=== PATIENT | female | born 1965 | race African-American/Black ===

== ENCOUNTER 2018-12-06 15:45 | Emergency (ER) | payer MEDICAID ==
--- NOTE | 2018-12-06 17:46 | ED Physician Documentation ---
PD HPI LOWER EXT INJURY - Stated complaint Stated Complaint: LEG PX - Chief complaint Chief Complaint: Ext Problem - History obtained from History obtained from: Patient - History of Present Illness PD HPI LOW EXT INJURY LOCATION: Left, Lower leg (anterolateral aspect) Type of injury: No: Fall, Twist Where injury occurred: Home Timing - onset: How many weeks ago (3-4) Timing - duration: Weeks (3-4) Timing - details: Gradual onset, Still present Associated symptoms: Discolored (the past couple days, is having mottled appearance in the area. No redness per se. No blisters. Is tender in the muscle there. Not tender posteriorly nor popliteal. Palpable pulses in foot and good cap refill in toes.). No: Weakness, Numbness, Swelling Similar symptoms before: Has not had sx before Recently seen: Not recently seen Review of Systems Constitutional: denies: Fever, Chills, Myalgias, Fatigue Nose: denies: Rhinorrhea / runny nose, Congestion Throat: denies: Sore throat Respiratory: denies: Cough GI: denies: Abdominal Pain, Nausea, Vomiting, Diarrhea : denies: Hematuria Musculoskeletal: denies: Neck pain, Back pain PD PAST MEDICAL HISTORY - Past Medical History Past Medical History: No Cardiovascular: None Respiratory: None Neuro: None Endocrine/Autoimmune: None - Past Surgical History Past Surgical History: No - Present Medications Home Medications: Ambulatory Orders Medication Instructions Recorded Confirmed Naproxen 500 mg PO BID #20 tablet 12/06/18 Tramadol HCl 50 mg PO Q6H PRN #15 tablet 12/06/18 - Allergies Allergies/Adverse Reactions: Allergies Allergy/AdvReac Type Severity Reaction Status Date / Time No Known Drug Allergies Allergy Verified 12/06/18 16:28 - Social History Does the pt smoke?: No Smoking Status: Never smoker Does the pt drink ETOH?: No Does the pt have substance abuse?: No - Immunizations Immunizations are current?: Yes - POLST Patient has POLST: No PD ED PE NORMAL - Vitals Vital signs reviewed: Yes - General General: Alert and oriented X 3, No acute distress (seems concerned about the pain in leg, but not is apparent distress. Says it hurts a lot. ), Well developed/nourished - Neck Neck: Supple, no meningeal sign, No adenopathy - Cardiac Cardiac: RRR, No murmur - Respiratory Respiratory: Clear bilaterally - Abdomen Abdomen: Soft, Non tender - Back Back: No CVA TTP, No spinal TTP - Derm Derm: Warm and dry, Other (mottled appearance of skin just in local area of left lower leg. No purpura, vesicles, nor skin ulcerations/lesions. ). No: Normal color (the anterolateral aspect of left lower leg with defined area of mottling of skin. Some tender to touch of skin and soft tissue. No edema. No blisters. No redness nor skin sores per se. ) - Extremities Extremities: No edema, Other (not calf tender per se. But is tender muscle ) Results - Vitals Vitals: Oxygen O2 Source Room air - Labs Labs: Laboratory Tests 12/06/18 12/06/18 18:42 18:42 WBC 4.7 L RBC 4.14 L Hgb 12.5 Hct 38.9 MCV 94.1 MCH 30.3 MCHC 32.2 RDW 12.6 Plt Count 266 MPV 7.1 L Neut # (Auto) 2.7 Lymph # (Auto) 1.7 Parmer # (Auto) 0.2 Eos # (Auto) 0.0 Baso # (Auto) 0.0 Absolute Nucleated RBC 0.01 Nucleated RBC % 0.2 Sodium 138 Potassium 3.4 L Chloride 103 Carbon Dioxide 28 Anion Gap 7.0 BUN 17 Creatinine 0.8 Estimated GFR (MDRD) 91 Glucose 91 Calcium 9.1 Magnesium 2.1 Total Bilirubin 0.6 AST 16 ALT 12 Alkaline Phosphatase 54 Total Creatine Kinase 158 Total Protein 7.1 Albumin 3.8 Globulin 3.3 Albumin/Globulin Ratio 1.2 Lipase 50 PD MEDICAL DECISION MAKING - ED course Complexity details: considered differential (interesting to have the pain in leg, and tenderness, now developed mottling color lateral lower leg. Normal labs. Symptoms could be c/w shingles with atypical rash as yet, but duration is long. Unclear the cause at this itme. No significant process that I can think of, so seems stable for discharge. ), d/w patient Departure - Departure Disposition: 01 Home, Self Care Clinical Impression: Pain in left lower leg Condition: Stable Record reviewed to determine appropriate education?: Yes Instructions: Leg Low Back Pain Poss Causes Prescriptions: Naproxen 500 mg PO BID #20 tablet Tramadol HCl 50 mg PO Q6H PRN #15 tablet PRN Reason: Pain Comments: Your basic blood tests and the ultrasound appeared normal. There is no signs of blood flow issues or clots as a cause of the pain. There is no signs of muscle breakdown or electrolyte problems on your blood test. I am not sure the cause of your pain in the mottling color of the skin. At this point would treated with some anti-inflammatories thinking and nerve irritation for the area. Naproxen twice daily for 7-10 days. Add tramadol pain medicine if needed. Follow-up with your primary care if not improved over the next several days to week. Discharge Date/Time: 12/06/18 21:33
[2018-12-06] MEDS ORDERED: HYDROcod/ACETAM 5/325 MG TABLET PO STA (18:34)
[2018-12-06] MEDS ORDERED: IBUPROFEN 600 MG TABLET PO STA (18:34)
[2018-12-06 18:50] LABS: BASOPHILS % (AUTO) 0.4 %; EOSINOPHILS % (AUTO) 0.7 %; HGB - HEMOGLOBIN 12.5 g/dL (12.0-16.0); LYMPHOCYTES # (AUTO) 1.7 10^3/uL (1.5-3.5); LYMPHOCYTES % (AUTO) 36.2 %; MEAN CORPUSCULAR HEMOGLOBIN 30.3 pg (27.0-31.0); MEAN CORPUSCULAR HGB CONC 32.2 g/dL (32.0-36.0); MEAN CORPUSCULAR VOLUME 94.1 fL (81.0-99.0); MEAN PLATELET VOLUME 7.1 fL (7.9-10.8); MONOCYTES # (AUTO) 0.2 10^3/uL (0.0-1.0); MONOCYTES % (AUTO) 4.9 %; NEUTROPHILS # (AUTO) 2.7 10^3/uL (1.5-6.6); NEUTROPHILS % (AUTO) 57.8 %; PLT - PLATELET COUNT 266 10^3/uL (130-450); RED BLOOD COUNT 4.14 10^6/uL (4.20-5.40); RED CELL DISTRIBUTION WIDTH 12.6 % (12.0-15.0); WHITE BLOOD COUNT 4.7 x10^3/uL (4.8-10.8)
[2018-12-06 18:56] LABS: ALBUMIN 3.8 g/dL (3.2-5.5); ALBUMIN/GLOBULIN RATIO 1.2 (1.0-2.2); BILIRUBIN,TOTAL 0.6 mg/dL (0.2-1.0); CALCIUM 9.1 mg/dL (8.5-10.3); CREATININE 0.8 mg/dL (0.4-1.0); MAGNESIUM 2.1 mg/dL (1.7-2.8); TOTAL PROTEIN 7.1 g/dL (6.7-8.2)
--- NOTE | 2018-12-06 20:07 | Ultrasound Report ---
Reason: left leg pain for several weeks, worse with walkin Procedure Date: 12/06/2018 Accession Number: [id number] / [id number] Procedure: US - Duplex Lwr Ext Arterial LT CPT Code: FULL RESULT: EXAM: LEFT LOWER EXTREMITY ARTERIAL DOPPLER ULTRASOUND. EXAM DATE: 12/06/2018 07:40 PM. CLINICAL HISTORY: Left leg pain for several weeks, worse with walking. COMPARISON: None. TECHNIQUE: Real-time sonographic vascular imaging was performed by the paralegal instructor, utilizing color-flow, Doppler flow, and spectral analysis. Multiple community representative static images were saved for review. FINDINGS: Left Lower Extremity: VOICE PATHOLOGIST: PSV 126.7 cm/sec PSFA: PSV 76.8 cm/sec MSFA: PSV 89.1 cm/sec DSFA: PSV 57.3 cm/sec PFA D: PSV 64.5 cm/sec Pop: PSV 58.1 cm/sec SETH: PSV 30.6 cm/sec ANALYTICAL DATA SCIENTIST D: PSV 37.7 cm/sec PER: PSV 33.6 cm/sec DPA: PSV 38.5 cm/sec IMPRESSION: No evidence for hemodynamically significant stenosis. RADIA
[2018-12-06 21:33] VITALS: BP 132/79
== END 2018-12-06 21:33 | disposition home or self-care (01) ==
LOC: ED 15:45
DX: M79.662 Pain in left lower leg (principal)
CPT/HCPCS: 36415; 80053; 82550; 83690; 83735; 85025; 93926; 99283; A9270

== ENCOUNTER 2019-01-11 10:13 | Emergency (ER) | payer MEDICAID ==
[2019-01-11] MEDS ORDERED: SODIUM CHLORIDE 0.9% 1,000 ML IV ONE (10:50)
[2019-01-11 11:05] LABS: BASOPHILS % (AUTO) 0.2 %; HGB - HEMOGLOBIN 12.5 g/dL (12.0-16.0); LYMPHOCYTES # (AUTO) 0.6 10^3/uL (1.5-3.5); LYMPHOCYTES % (AUTO) 16.9 %; MEAN CORPUSCULAR HEMOGLOBIN 31.2 pg (27.0-31.0); MEAN CORPUSCULAR HGB CONC 33.8 g/dL (32.0-36.0); MEAN CORPUSCULAR VOLUME 92.2 fL (81.0-99.0); MEAN PLATELET VOLUME 6.7 fL (7.9-10.8); MONOCYTES # (AUTO) 0.3 10^3/uL (0.0-1.0); MONOCYTES % (AUTO) 8.6 %; NEUTROPHILS # (AUTO) 2.5 10^3/uL (1.5-6.6); NEUTROPHILS % (AUTO) 74.3 %; PLT - PLATELET COUNT 210 10^3/uL (130-450); RED BLOOD COUNT 4.02 10^6/uL (4.20-5.40); RED CELL DISTRIBUTION WIDTH 12.7 % (12.0-15.0); WHITE BLOOD COUNT 3.4 x10^3/uL (4.8-10.8)
[2019-01-11 11:18] LABS: ALBUMIN 3.9 g/dL (3.2-5.5); ALBUMIN/GLOBULIN RATIO 1.1 (1.0-2.2); BILIRUBIN,TOTAL 0.7 mg/dL (0.2-1.0); CALCIUM 8.5 mg/dL (8.5-10.3); CREATININE 0.6 mg/dL (0.4-1.0); TOTAL PROTEIN 7.6 g/dL (6.7-8.2)
--- NOTE | 2019-01-11 11:40 | XRAY Report ---
Reason: cough Procedure Date: 01/11/2019 Accession Number: [id number] / [id number] Procedure: XR - Chest 2 View X-Ray CPT Code: 11704 FULL RESULT: EXAM: CHEST RADIOGRAPHY EXAM DATE: 01/11/2019 11:30 AM. CLINICAL HISTORY: Cough. COMPARISON: None. TECHNIQUE: 2 views. FINDINGS: Lungs/Pleura: No focal opacities evident. No pleural effusion. No pneumothorax. Normal volumes. Mediastinum: Heart and mediastinal contours are unremarkable. Other: None. IMPRESSION: Normal 2-view chest radiography. RADIA
[2019-01-11] MEDS ORDERED: KETOROLAC 30 MG/ML VIAL IVP STA (12:06)
[2019-01-11] MEDS ORDERED: guaiFENesin/CODEINE 5 ML UDC PO STA (12:06)
--- NOTE | 2019-01-11 12:08 | ED Physician Documentation ---
PD HPI URI - Stated complaint Stated Complaint: COLD/FEVER - Chief complaint Chief Complaint: Resp - History obtained from History obtained from: Patient, Family - History of Present Illness Timing - onset: Other (This is a previously healthy 53-year-old woman whose been sick for about a week with nonproductive cough, fevers as high as 102.9, runny nose and slight nausea. She denies any body aches or myalgias. No sick contacts or recent travel.) Review of Systems Constitutional: reports: Fever, Chills, Fatigue. denies: Myalgias Nose: reports: Rhinorrhea / runny nose Respiratory: reports: Cough. denies: Dyspnea GI: reports: Nausea. denies: Abdominal Pain, Vomiting PD PAST MEDICAL HISTORY - Past Medical History Cardiovascular: None Respiratory: None Neuro: None Endocrine/Autoimmune: None - Past Surgical History Past Surgical History: No - Present Medications Home Medications: Ambulatory Orders Medication Instructions Recorded Confirmed Ibuprofen [Motrin] 800 mg PO Q8H PRN #30 tablet 01/11/19 guaiFENesin/CODEINE [Robitussin AC] 5 - 10 ml PO Q6H PRN #120 ml 01/11/19 - Allergies Allergies/Adverse Reactions: Allergies Allergy/AdvReac Type Severity Reaction Status Date / Time No Known Drug Allergies Allergy Verified 01/11/19 10:33 - Social History Does the pt smoke?: No Smoking Status: Never smoker Does the pt drink ETOH?: No Does the pt have substance abuse?: No - Immunizations Immunizations are current?: Yes - POLST Patient has POLST: No PD ED PE NORMAL - Vitals Vital signs reviewed: Yes - General General: Alert and oriented X 3, No acute distress - HEENT HEENT: PERRL, EOMI, Ears normal, Pharynx benign - Neck Neck: Supple, no meningeal sign, No bony TTP - Cardiac Cardiac: RRR, No murmur - Respiratory Respiratory: No respiratory distress, Clear bilaterally - Abdomen Abdomen: Non tender - Derm Derm: No rash - Neuro Neuro: Alert and oriented X 3, Normal speech Results - Vitals Vitals: Vital Signs - 24 hr 01/11/19 01/11/19 01/11/19 10:30 12:03 13:51 Temperature 37.9 C H Heart Rate 91 71 Respiratory 18 17 Rate Blood Pressure 92/59 L 108/74 110/79 O2 Saturation 97 96 Oxygen O2 Source Room air - Labs Labs: Laboratory Tests 01/11/19 01/11/19 01/11/19 11:00 11:00 11:00 WBC 3.4 L RBC 4.02 L Hgb 12.5 Hct 37.1 MCV 92.2 MCH 31.2 H MCHC 33.8 RDW 12.7 Plt Count 210 MPV 6.7 L Neut # (Auto) 2.5 Lymph # (Auto) 0.6 L Collier # (Auto) 0.3 Eos # (Auto) 0.0 Baso # (Auto) 0.0 Absolute Nucleated RBC 0.01 Nucleated RBC % 0.2 Sodium 132 L Potassium 3.4 L Chloride 98 L Carbon Dioxide 23 Anion Gap 11.0 BUN 10 Creatinine 0.6 Estimated GFR (MDRD) 127 Glucose 104 H Lactic Acid 0.7 Calcium 8.5 Total Bilirubin 0.7 AST 26 ALT 20 Alkaline Phosphatase 62 Total Protein 7.6 Albumin 3.9 Globulin 3.7 Albumin/Globulin Ratio 1.1 Lipase 46 Influenza A (Rapid) Influenza B (Rapid) 01/11/19 12:05 WBC RBC Hgb Hct MCV MCH MCHC RDW Plt Count MPV Neut # (Auto) Lymph # (Auto) Collier # (Auto) Eos # (Auto) Baso # (Auto) Absolute Nucleated RBC Nucleated RBC % Sodium Potassium Chloride Carbon Dioxide Anion Gap BUN Creatinine Estimated GFR (MDRD) Glucose Lactic Acid Calcium Total Bilirubin AST ALT Alkaline Phosphatase Total Protein Albumin Globulin Albumin/Globulin Ratio Lipase Influenza A (Rapid) POSITIVE H Influenza B (Rapid) Negative - Rads (name of study) 2v chest Radiology: EMP read contemporaneously (normal) PD MEDICAL DECISION MAKING - ED course ED course: This is a 53-year-old woman with influenza A which is treated symptomatically, she is outside of the time course for expected efficacy of the antivirals. Departure - Departure Disposition: 01 Home, Self Care Clinical Impression: Influenza A Condition: Good Record reviewed to determine appropriate education?: Yes Instructions: ED Flu Prescriptions: guaiFENesin/CODEINE [Robitussin AC] 5 - 10 ml PO Q6H PRN #120 ml PRN Reason: Cough Ibuprofen [Motrin] 800 mg PO Q8H PRN #30 tablet PRN Reason: PAIN &/OR FEVER Comments: No work for 5 days, there is anti-flu medication but it is only effective in the first 48 hours of illness was not indicated for your illness at this point. Return for new or worsening symptoms. Discharge Date/Time: 01/11/19 13:51
[2019-01-11 13:51] VITALS: BP 110/79
== END 2019-01-11 13:51 | disposition home or self-care (01) ==
LOC: ED 10:13
DX: J10.1 Influenza due to other identified influenza virus with other respiratory manifestations (principal)
CPT/HCPCS: 36415; 71046; 80053; 83605; 83690; 85025; 87275; 87276; 96361; 96374; 99283; A9270

== ENCOUNTER 2019-06-08 15:51 | Emergency (ER) | payer MEDICAID ==
[2019-06-08 16:07] VITALS: BP 108/81
--- NOTE | 2019-06-08 16:24 | ED Physician Documentation ---
History of Present Illness - Stated complaint Stated Complaint: RIGHT ARM WEAKNESS/TIRED - Chief complaint Chief Complaint: Ext Problem - History obtained from History obtained from: Patient, Family - Additonal information Additional information: Patient is a previously healthy, right-handed 53-year-old female presenting with generalized right arm pain and weakness. Patient and her family report that she has been doing heavy lifting, strenuous exercise, and repetitive motions such as washing lots of dishes with her right arm over the past several days, but deny other inciting incident or trauma. Patient does report decreased strength but no change in range of motion or sensation to this arm. Patient also denies any swelling, redness, or other skin changes except for "bumps" underlying the skin which have been there for years and are also on other parts of her body.No other improving or worsening factors noted. Review of Systems Skin: reports: Lesions. denies: Rash, Abrasion (s), Laceration (s) Musculoskeletal: reports: Extremity pain. denies: Joint pain, Extremity swelling, Joint swelling Neurologic: reports: Focal weakness. denies: Numbness PD PAST MEDICAL HISTORY - Past Medical History Cardiovascular: None Respiratory: None Neuro: None Endocrine/Autoimmune: None - Past Surgical History Past Surgical History: No - Present Medications Home Medications: Ambulatory Orders Medication Instructions Recorded Confirmed Ibuprofen [Motrin] 800 mg PO Q8H PRN #30 tablet 01/11/19 guaiFENesin/CODEINE [Robitussin AC] 5 - 10 ml PO Q6H PRN #120 ml 01/11/19 - Allergies Allergies/Adverse Reactions: Allergies Allergy/AdvReac Type Severity Reaction Status Date / Time No Known Drug Allergies Allergy Verified 06/08/19 16:07 - Social History Does the pt smoke?: No Smoking Status: Never smoker Does the pt drink ETOH?: No Does the pt have substance abuse?: No - Immunizations Immunizations are current?: Yes - POLST Patient has POLST: No PD ED PE NORMAL - Vitals Vital signs reviewed: Yes - General General: Alert and oriented X 3, No acute distress, Well developed/nourished - HEENT HEENT: Atraumatic, Moist mucous membranes - Cardiac Cardiac: Strong equal pulses - Respiratory Respiratory: No respiratory distress - Derm Derm: Normal color, Warm and dry, No rash, Other (Scattered palpable soft nodules underlying skin that are not painful, likely lipomas. No other complicating factors noted.) - Extremities Extremities: No deformity, No tenderness to palpate, Normal ROM s pain, No edema - Neuro Neuro: Alert and oriented X 3, No sensory deficit. No: No motor deficit (Decreased strength of right hand 4/5 full range of motion, strength, sensation otherwise.) - Psych Psych: Normal mood, Normal affect Results - Vitals Vitals: Vital Signs - 24 hr 06/08/19 16:03 Temperature 36.2 C L Heart Rate 73 Respiratory 18 Rate Blood Pressure 108/81 H O2 Saturation 98 Oxygen O2 Source Room air PD MEDICAL DECISION MAKING - ED course Complexity details: considered differential, d/w patient, d/w family ED course: Patient presenting with generalized pain and weakness to the right upper extremity without particular inciting incident or trauma, but likely overuse and repetitive use. Do not find bony abnormalities to indicate dislocation or fracture and do not feel patient requires x-ray. Do not find areas to indicate gout, joint infection, cellulitis, abscess, lymphangitis. Do not have concern for DVT, stroke, neuropathy, radiculopathy at this time. Patient does have palpable nodules likely underlying lipomas, particularly given nonpainful and chronicity. Feel the patient's discomfort and other symptoms are related to tendinitis or other overuse issues. At this time, do not feel she requires anything invasive or imaging, but can be treated as an outpatient with supportive cares. Discussed use of sling, return precautions, other supportive cares, and follow-up. Patient and family voiced understanding and are comfortable with discharge plan. Departure - Departure Disposition: 01 Home, Self Care Clinical Impression: Pain in extremity, Muscle strain Condition: Good Instructions: ED Epicondylitis Lateral Elbow Follow-Up: your,doctor [Other] - Within 3 Days Comments: May use sling as needed for comfort, but please remove your arm regularly throughout the day to avoid stiffness. May also elevate and apply ice, as well as take ibuprofen/Tylenol. Please avoid heavy lifting, strenuous exercise, repetitive movements. Follow-up with primary care physician in next 2 to 3 days and return to ED sooner if experience worsening symptoms or have other concerns. Discharge Date/Time: 06/08/19 16:57
== END 2019-06-08 16:57 | disposition home or self-care (01) ==
LOC: ED 15:51
DX: S46.911A Strain of unspecified muscle, fascia and tendon at shoulder and upper arm level, right arm, initial encounter (principal)
CPT/HCPCS: 99282

== ENCOUNTER 2019-08-03 21:11 | Emergency (ER) | payer MEDICAID ==
--- NOTE | 2019-08-03 21:23 | ED Physician Documentation ---
PD HPI BACK PAIN - Stated complaint Stated Complaint: BACK PX/INJ - Chief complaint Chief Complaint: Back Pain - History obtained from History obtained from: Patient - History of Present Illness Timing - onset: Enter time (14:00), Today Timing - details: Abrupt onset Location: Lower (across lower back) Quality: Pain Associated symptoms: No: Fever, Weakness, Numbness, Incontinent of urine, Unable to urinate, Incontinent of stool Improves with: Rest, Position (standing) Worsened by: Movement, Other (lying supine) Similar symptoms before: Has not had sx before Recently seen: Not recently seen - Additional information Additional information: patient had been performing some heavy lifting earlier today but this did not coincide with symptom onset. This afternoon at 2 PM, she went to stand from sitting position and had sudden onset pain across her lower back. The pain was intense enough for her to require assistance standing back up. She has since had gradually worsening pain across her lower back that is distinctly related to movement (bending, twisting) and partially relieved with standing still. Getting into and back out of bed required assistance from family, which is not normal for patient. Review of Systems Constitutional: denies: Fever : denies: Unable to Void, Incontinent Musculoskeletal: reports: Back pain. denies: Neck pain Neurologic: denies: Focal weakness, Numbness PD PAST MEDICAL HISTORY - Past Medical History Cardiovascular: None Respiratory: None Neuro: None Endocrine/Autoimmune: None - Past Surgical History Past Surgical History: No - Present Medications Home Medications: Ambulatory Orders Medication Instructions Recorded Confirmed Cyclobenzaprine [Flexeril] 10 mg PO TID PRN #20 tablet 08/03/19 Hydrocodone/Acetaminophen 1 - 2 each PO Q6H PRN #14 tablet 08/03/19 [Hydrocodon-Acetaminophen 5-325] - Allergies Allergies/Adverse Reactions: Allergies Allergy/AdvReac Type Severity Reaction Status Date / Time No Known Drug Allergies Allergy Verified 08/03/19 21:16 - Social History Does the pt smoke?: No Smoking Status: Never smoker Does the pt drink ETOH?: No Does the pt have substance abuse?: No - Immunizations Immunizations are current?: Yes - POLST Patient has POLST: No PD ED PE NORMAL - Vitals Vital signs reviewed: Yes - General General: Alert and oriented X 3, No acute distress (NAD when standing at bedside and still, but appears to have mild painful discomfort when she sits on stretcher or turns / twists to either side (at hips)), Well developed/nourished - Back Back: No CVA TTP, No spinal TTP - Derm Derm: Normal color, Warm and dry, No rash - Neuro Neuro: Alert and oriented X 3, No motor deficit (5/5 dorsi/plantarflexion), No sensory deficit, Other (2+/4 bilateral patellar DTR) Results - Vitals Vitals: Vital Signs - 24 hr 08/03/19 08/03/19 21:13 23:00 Temperature 36.6 C Heart Rate 70 61 Respiratory 18 16 Rate Blood Pressure 113/87 H 119/90 H O2 Saturation 97 99 Oxygen O2 Source Room air - Rads (name of study) lumbar xrays Radiology: Prelim report reviewed, See rad report PD MEDICAL DECISION MAKING - ED course Complexity details: reviewed results, re-evaluated patient, considered differential, d/w patient ED course: I discussed options for pain control with patient. She initially declines any medications but eventually agreeable to "low dose" (per patient) of ibuprofen. Departure - Departure Disposition: 01 Home, Self Care Clinical Impression: Lumbar strain Condition: Good Instructions: ED Sprain Strain Lumbar Prescriptions: Cyclobenzaprine [Flexeril] 10 mg PO TID PRN #20 tablet PRN Reason: Spasms Hydrocodone/Acetaminophen [Hydrocodon-Acetaminophen 5-325] 1 - 2 each PO Q6H PRN #14 tablet PRN Reason: pain Discharge Date/Time: 08/03/19 23:18
[2019-08-03] MEDS ORDERED: IBUPROFEN 400 MG TABLET PO STA (21:37)
--- NOTE | 2019-08-03 22:47 | XRAY Report ---
Reason: low back pain Procedure Date: 08/03/2019 Accession Number: [id number] / [id number] Procedure: XR - Lumbar Spine 2 View CPT Code: FULL RESULT: EXAM: LUMBOSACRAL SPINE RADIOGRAPHY EXAM DATE: 08/03/2019 10:14 PM. CLINICAL HISTORY: Low back pain. COMPARISONS: None. TECHNIQUE: 3 views. FINDINGS: Alignment: Normal. No spondylolisthesis or scoliosis. Bones: Five [id number] lumbar vertebral bodies are present. No fractures or bone lesions. Disks: Normal. Disk heights are maintained. Facets: No degenerative changes. Sacroiliac Joints: Unremarkable. Soft Tissues: Normal. The visualized bowel gas pattern is normal. IMPRESSION: No acute displaced fracture or malalignment. RADIA
[2019-08-03 23:01] VITALS: BP 119/90
[2019-08-03] MEDS ORDERED: HYDROcod/ACET 5/325 Prepack 4 PO STA (23:08)
[2019-08-03] MEDS ORDERED: CYCLOBENZAPRINE 10 MG Prepack 2 PO PRN (23:08)
== END 2019-08-03 23:18 | disposition home or self-care (01) ==
LOC: ED 21:11
DX: S39.012A Strain of muscle, fascia and tendon of lower back, initial encounter (principal); X50.0XXA Overexertion from strenuous movement or load, initial encounter
CPT/HCPCS: 72100; 99283; A9270